=== PATIENT | male | born 1950 | race Caucasian/White ===

== ENCOUNTER 2023-03-13 09:00 | Outpatient (RCR) | payer MEDICARE, BC, SELFPAY ==
--- NOTE | 2022-10-28 18:04 | OT.OPOE ---
OT Outpatient Ortho Eval OT Outpatient Ortho Eval Start: 10/26/22 09:38 Freq: Status: Active Protocol: Document 10/26/22 18:57 LCN (Rec: 10/26/22 19:03 LCN Desktop) E-signed By Patito Snell, OTR/L, CLT OT OP Ortho Eval Details Type Type Eval Complexity Low Insurance Information Insurance Information Medicare B Outpatient History/Precautions Current Condition/Medical Diagnosis Referring Provider Israel Hoang Treatment Diagnosis Left Trigger Thumb Date of Onset 10/10/22 Medical Conditions HTN,Arthritis Other Conditions Hypercholesterolemia. 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 Allergic to doxycycline. Medical/Functional History Medical History Reviewed Yes Prior Level of Function/Mobility Pt lives alone in his lower level apt below sister, brother in law and nephew. 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 He did travel to [place] [facility] and was doing a lot of photography recently. He also had intermittent triggering of R middle finger while tying boots in hooked flexion. Pain Assessment Pain Present Pain Present Pain Reported Location L shoulder Description Pressure,Dull, Achy,Pinching, With Movement Intensity 3 L thumb Description Tightness,Pressure,Dull, Achy, Throbbing,Pinching,Pulling, With Movement Intensity 5 Goniometric Comments Goniometric Comments Goniometric Comments AROM-- WNL for all wrist, elbow planes. SH FL to 160 of 180 L. ER to 80 of 90. H ABD to 100 of 140. R UE WNL. Kepangi L 2/4 retropulsion and 9/10 opposition with 1-2/10 pn at MP. Scrub test has L CMC pain 2/10 , popping gritty, irregular tracking, but stable during MMT. Triggering, clicking at L thumb IP is constant, daily. MMT of all wrist planes 5/5, no pain. 4/5 with supination, pain at CMC 2/10. L SH MMT is 4+/5 SH FL/ABD no pain 4-/5 with SH ER. No pain . Humeral head displaced forward in GH fosaa by 2 cm on L side, R WNL. Chinese Teacher is 60# B. Connolly pinch is 22# R and 15# L (( 2/10 pn at CMC MP) 3 point pinch is 17# R and 13# L ( 4/10 pn at CMC) OT Objective Data Hand Hand Dominance Right Upper Extremity Special Tests Tenosynovitis Wrist Finklestein Test Negative Left Degenerative Arthritis Hand Trapeziometacarpal Joint Grind Test Positive Left Upper Extremity Special Tests Comments Comments no numbness or paresthesia OT Problems Problems Problems Decreased Strength,Decreased Range of Motion,Decreased Fine Motor,Lifting,Gripping, Pinching Other Problems Opening Containers,Computer Patient Potential Excellent Assessment Assessment Assessment Given Rambo's diagnosis of left trigger thumb and ? difficulty with edema, pain, ROM and strength loss of L hand, he would benefit from skilled OT to address these areas. Occupational Therapy Treatment Plan - OP Potential Rehabilitation Potential Excellent Set Goals Goals Set with Patient Yes Goals Goals In 8 weeks, pt will demonstrate:? 1) Decreased pn to <2/10 80% of the time with sustained gripping/pinching, carrying groceries, reading books and typing. 2) I HEP for stretching, gradual strengthening ( including L shoulder) and self mgmt strategies. 3) improved L pinch to 20# with L thumb pain < 1/10. 4)??Pt to be fit with functional bracing (for L thumb, day, night splints as needed) and use adaptive strategies to protect joint integrity to support less pain with ADL. Target Date 01/24/23 Progress set Treatment Plan Expected Frequency 1-2x Week Expected Duration 6-8 Weeks Certification Certification I Certify That: Therapy Services Provided, Therapy Plan Established, Therapy Plan Reviewed Recertification Information Recertification Information Initial Certification Date 10/26/22 Recertification Due Date 01/23/23 Provider Signature Shows Agreement With POC & Medical Necessity Physician Comment/Change Comment or Changes Physician NPI Number #
--- NOTE | 2023-01-03 11:57 | OT.OPODN2 ---
OT Outpatient Ortho Daily Note OT Outpatient Ortho Daily Note Start: 10/26/22 09:38 Freq: Status: Active Protocol: Document 01/03/23 11:25 LCN (Rec: 01/03/23 11:56 LCN [id number]) E-signed By Patito Snell, OTR/L, CLT Type of Note Type of Note Type of Note Daily Note,Note To MD,Recert/ Progress Note Visit Number 6 Insurance Information Insurance Information Medicare B Outpatient History/Precautions Current Condition/Medical Diagnosis Referring Provider Israel Hoang Treatment Diagnosis Left Trigger Thumb Date of Onset 10/10/22 Medical Conditions HTN,Arthritis Other Conditions Hypercholesterolemia. 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 Allergic to doxycycline. Medical/Functional History Medical History Reviewed Yes Prior Level of Function/Mobility Pt lives alone in his lower level apt below sister, brother in law and nephew. 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 Painful with rotating force with keys, cap and pulling pants up, squeezing small tubes of cream. Wears MP/IP stabilizer cone splint most hours of day, off at HS. Contrast baths don't feel like they do much anymore, hands loosen up well without it. Yellow putty seems to aggravate the pain. Rambo Ferreira is an active 72 yr old male who had fairly sudden onset of L thumb triggering, stiffness and pain 3 weeks ago, without known trauma for the past 3 weeks. He did travel to [facility] and was doing a lot of photography recently. Cont to have intermittent triggering of R middle finger while tying boots in hooked flexion. Pain Assessment Pain Present Pain Present Pain Reported Location L shoulder Description Pressure,Dull, Achy,Pinching, With Movement Intensity 3 L thumb Description Tightness,Pressure,Dull, Achy, Throbbing,Pinching,Pulling, With Movement Intensity 3 OT OP Daily Ortho Note/Assessment Therapeutic Exercise Therapeutic Exercise Minutes (minutes) 16 Therapeutic Exercise Comments Adjusted HEP-- d/c contrast baths (use for very stiff days only). Hold putty per pain. Added CMC webs space adductor stretch with roll out and tractioning x 3 reps-2 x/day. Reviewed jt blocking exercises, hold on IP extension glides until click decreases again, work on total TH EX at end ROM opposition arc and finger touching. Pt encouraged to avoid ful IP extension/large clicking after flexion, stay inside of painfree ROM. Ultrasound Ultrasound Location & Joint Position L thenar to IP, web spaces. Ultrasound Frequency & Mode 1 MHz Pulsed Intensity (w/cm2) 1.7 Ultrasound Duration 8 Minutes Ultrasound Comments as needed to support reduction of edema for tissue healing and improved tissue mobility Manual Therapy Manual Therapy Minutes (minutes) 16 Manual Therapy Comments OTR continues IASTM with Graston #6 to mobilize soft tissue surrounding joint capsule,?ligament structures and muscle groups to support freedom of movement and healing of structures of L thenar to IP, MP tendon length above/below pulleys, thenar eminence and web space. OTR completes pin and stretch at each blake of thumb MP/IP joints. Goniometric Comments Goniometric Comments Goniometric Comments 01/03/23-- Research Technologist is 55# R and 62# L ( twinge at MP, IP 1/10). 3 pt pinch is 22# R and 18# L (CMC twinge) 08/02. 3 pt is 22# R and 14# L ( 10 CMC twinge). From 10/26/22 eval: AROM-- WNL for all wrist, elbow planes. SH FL to 160 of 180 L. ER to 80 of 90. H ABD to 100 of 140. R UE WNL. Kepangi L 2/4 retropulsion and 9/10 opposition with 1-2/10 pn at MP. Scrub test has L CMC pain 2/10 , popping gritty, irregular tracking, but stable during MMT. Triggering, clicking at L thumb IP is constant, daily. MMT of all wrist planes 5/5, no pain. 4/5 with supination, pain at CMC 2/10. L SH MMT is 4+/5 SH FL/ABD no pain 4-/5 with SH ER. No pain . Humeral head displaced forward in GH fosaa by 2 cm on L side, R WNL. Research Technologist is 60# B. Connolly pinch is 22# R and 15# L (( 2/10 pn at CMC MP) 3 point pinch is 17# R and 13# L ( 4/10 pn at CMC) OT Objective Data Hand Hand Dominance Right Additional Information Objective Additional Information HEP-- 01/03/23-- hold putty and IP EX . Increase CMC MP TH EX at end ROM opposition and finger touch ex. D/C contrast baths. 11/09/22-- putty HEP for b2b sales manager, connolly 2 point alternating. 11/02/22-- circular massage, pin/stretch of L MP, IP Contrast baths with joint blocking ex for thumb mobility , CMC MP cone with wrist velcro brace. Upper Extremity Special Tests Tenosynovitis Wrist Finklestein Test Negative Left Degenerative Arthritis Hand Trapeziometacarpal Joint Grind Test Positive Left Upper Extremity Special Tests Comments Comments no numbness or paresthesia OT Problems Problems Problems Decreased Strength,Decreased Range of Motion,Decreased Fine Motor,Lifting,Gripping, Pinching Other Problems Opening Containers,Computer Patient Potential Excellent Assessment Assessment Assessment Pt' symptoms are much more mild, but still 5-6x/day. despite bracing, self IASTM, jt blocking and contrast baths . Agrees he would benefit from more OT for IASTM, US, and progression of HEP. Given Rambo's diagnosis of left trigger thumb and ? difficulty with edema, pain, ROM and strength loss of L hand, he would benefit from skilled OT to address these areas. Occupational Therapy Treatment Plan - OP Potential Rehabilitation Potential Excellent Set Goals Goals Set with Patient Yes Goals Goals PROGRESS-- After 6 visits of OT ( with 8 week delay since last visit, 11/09/22) In 8 weeks, pt will demonstrate:? 1) Decreased pn to <2/10 80% of the time with sustained gripping/pinching, carrying groceries, reading books and typing. (01/03/23 PROGRESS: Still having predictable pn with pinch + rotation, reisted pinch and pulling up pants, mild triggering at L IP extension) 2) I HEP for stretching, gradual strengthening ( including L shoulder) and self mgmt strategies. 3) improved L pinch to 20# with L thumb pain < 1/10. ( connolly pinch 18# RL and 14# 3 pt, 1/10 CMC pain) 4)??Pt to be fit with functional bracing (for L thumb, day, night splints as needed) and use adaptive strategies to protect joint integrity to support less pain with ADL. (Continues to wear MP/IP stabilizer thumb cone splint) Target Date 01/24/23 Progress set Treatment Plan Expected Frequency 1-2x Week Expected Duration 6-8 Weeks Comment Summary Pt returns after 8 weeks on vacation, OT plan of care still very appropriate. Added 8 more visits of OT to address sx further. OT Treatment Minutes Treatment Minutes Timed Treatment Minutes 40 Total Treatment Minutes 40 Occupational Therapy Billing Units Billing Units Manual Therapy 1 Therapeutic Exercise 1 Certification Certification I Certify That: Therapy Services Provided, Therapy Plan Established, Therapy Plan Reviewed Recertification Information Recertification Information Initial Certification Date 10/26/22 Recertification Start Date 01/03/23 Recertification Due Date 04/03/23 Reasons to Continue Skilled Therapy Pt returns after 8 weeks on vacation, OT plan of care still very appropriate. Pt' symptoms are much more mild, but still 5-6x/day. despite bracing, self IASTM, jt blocking and contrast baths. Agrees he would benefit from more OT for IASTM, US, and progression of HEP. Added 8 more visits of OT to address sx further. Rehabilitation Potential excellent Provider Signature Shows Agreement With POC & Medical Necessity Physician Comment/Change Comment or Changes Physician NPI Number #
--- NOTE | 2023-03-06 17:06 | OT.OPODN2 ---
OT Outpatient Ortho Daily Note OT Outpatient Ortho Daily Note Start: 10/26/22 09:38 Freq: Status: Active Protocol: Document 03/06/23 16:51 LCN (Rec: 03/06/23 17:05 JUAN [email or web address]) E-signed By Patito Snell, OTR/L, CLT Type of Note Type of Note Type of Note Daily Note,Note To MD Visit Number [id number] Insurance Information Insurance Information Medicare B Outpatient History/Precautions Current Condition/Medical Diagnosis Referring Provider Israel Hoang Treatment Diagnosis Left Trigger Thumb Date of Onset 10/10/22 Medical Conditions HTN,Arthritis Other Conditions Hypercholesterolemia. 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 Allergic to doxycycline. Medical/Functional History Medical History Reviewed Yes Prior Level of Function/Mobility Pt lives alone in his lower level apt below sister, brother in law and nephew. 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 No longer having pn at MP joint and is very pleased with those results. Triggering stays at bay when wearing oval 8 23 of 24 hours on L TH (but does wake with sitffness). ( Also wearing newer trigger finger splint on R RF x past 4 wks for 23 of 24 hours, gets pain / triggering with hook/pulling boot strings taut). Sees Dr Harvey Hoang on 03/08/23 to look further into options for managing B trigger finger symptoms further. From eval-- Gretchenaditya Ferreira is an active 72 yr old male who had fairly sudden onset of L thumb triggering, stiffness and pain 3 weeks ago, without known trauma for the past 3 weeks. He did travel to [facility] and was doing a lot of photography recently. Cont to have intermittent triggering of R middle finger while tying boots in hooked flexion. Pain Assessment Pain Present Pain Present Pain Reported Location R ring finger triggering Description Pressure,Shooting,With Movement Intensity 5 L shoulder Description Pressure,Dull, Achy,Pinching, With Movement Intensity 2 L thumb Description Tightness,Pressure,Dull, Achy, Throbbing,Pinching,Pulling, With Movement Intensity 1 OT OP Daily Ortho Note/Assessment Splinting Splinting Comments 02/07/23-- 2nd stronger rf trigger finger ring splint issued for R RF. 01/31/23-- trigger finger ring splint R RF. Ultrasound Ultrasound Location & Joint Position L thenar to IP, web spaces. Ultrasound Frequency & Mode 1 MHz Pulsed Intensity (w/cm2) 1.7 Ultrasound Duration 8 min Ultrasound Comments as needed to support reduction of edema for tissue healing and improved tissue mobility Manual Therapy Manual Therapy Minutes (minutes) 20 Manual Therapy Comments OTR continues IASTM with Graston #6 to mobilize soft tissue surrounding joint capsule,?ligament structures and muscle groups to support freedom of movement and healing of structures of L outcropping muscles of FLexor to out cropping mm, TH/1st DC , CMC joint capsule,thenar to IP, MP tendon length above/ below pulleys, thenar eminence and web space. OTR completes pin and stretch at each blake of thumb MP/IP joints. Gritty nodule and thickness still present below MP, less tender. Pt with questions on using manual hand technqiue vs IASTM on the base of MP; pt able to return demo of manual technique (as tool slips). Goniometric Comments Goniometric Comments Goniometric Comments 03/06/23-- Medical Front Desk Specialist is 68# R and 79# L ( no pn) Connolly pinch is 22# R and 19# L ( 1/10 tender at CMC base/ dorsal) 3 pt pinch is 19# R and 17# L (no pain). More clicking at blake A! on L thumb after deep resistance, non painful. 01/25/23-- Pn with over pressure at UD (DeQ), RD and WR EX OK ( STT) 01/21/23-- R relief map modeler 65#, 74# L ( with Ip click after, 2/10 tender) Connolly pinch 22# R and 16 # L 3 pt is 18# R and 16# L, no pain. Kinesiotape does not change strength much. 01/03/23-- Medical Front Desk Specialist is 55# R and 62# L ( twinge at MP, IP 08/02). 3 pt pinch is 22# R and 18# L (CMC twinge) 08/02. 3 pt is 22# R and 14# L ( 08/02 CMC twinge). From 10/26/22 eval: AROM-- WNL for all wrist, elbow planes. SH FL to 160 of 180 L. ER to 80 of 90. H ABD to 100 of 140. R UE WNL. Kepangi L 2/ retropulsion and / opposition with 1-2/10 pn at MP. Scrub test has L CMC pain 2/ , popping gritty, irregular tracking, but stable during MMT. Triggering, clicking at L thumb IP is constant, daily. MMT of all wrist planes 5/5, no pain. 4/5 with supination, pain at CMC 2/10. L SH MMT is 4+/5 SH FL/ABD no pain 4-/5 with SH ER. No pain . Humeral head displaced forward in GH fosaa by 2 cm on L side, R WNL. Medical Front Desk Specialist is 60# B. Connolly pinch is 22# R and 15# L (( 2/10 pn at CMC MP) 3 point pinch is 17# R and 13# L ( 4/10 pn at CMC) OT Objective Data Hand Hand Dominance Right Additional Information Objective Additional Information HEP-- 02/07/23-- yellow putty th add, radial abd, table top pinch 01/17/23-- yellow 5# band Rad, palmar Abduction, putty add and hypo/thenar press. 01/03/23-- hold putty and IP EX . Increase CMC MP TH EX at end ROM opposition and finger touch ex. D/C contrast baths. 11/09/22-- putty HEP for relief map modeler, connolly 2 point alternating. 11/02/22-- circular massage, pin/stretch of L MP, IP Contrast baths with joint blocking ex for thumb mobility , CMC MP cone with wrist velcro brace. Upper Extremity Special Tests Tenosynovitis Wrist Finklestein Test Negative Left Degenerative Arthritis Hand Trapeziometacarpal Joint Grind Test Positive Left Upper Extremity Special Tests Comments Comments no numbness or paresthesia OT Problems Problems Problems Decreased Strength,Decreased Range of Motion,Decreased Fine Motor,Lifting,Gripping, Pinching Other Problems Opening Containers,Computer Patient Potential Excellent Assessment Assessment Assessment MP pain much better in L thumb , still light to moderate catching in L IP. OTR having pt wearing L MP shashi splint on for the past 4 weeks for 80% of day/night, monitor for am joint stiffness . Pt returning to orthopedics this week. Given Rambo's diagnosis of left trigger thumb and ? difficulty with edema, pain, ROM and strength loss of L hand, he would benefit from skilled OT to address these area Occupational Therapy Treatment Plan - OP Potential Rehabilitation Potential Excellent Set Goals Goals Set with Patient Yes Goals Goals PROGRESS-- After 14 visits of OT ( with 8 week delay since last visit, 11/09/22) In 8 weeks, pt will demonstrate:? 1) Decreased pn to <2/10 80% of the time with sustained gripping/pinching, carrying groceries, reading books and typing. (03/06/23 PROGRESS: Still having predictable pn with pinch + rotation, resisted pinch and pulling up pants, mild triggering at L IP extension, hard to pickling tank operator pills/paper clips from table top) 2) I HEP for stretching, gradual strengthening ( including L shoulder) and self mgmt strategies. (PROGRESS 03/06/23-- Does well with consistent HEP, contrast baths and jt blocking exercises helpful to manage daily stiffness, working on thenar stability with 5# band and putty exercises). 3) improved L pinch to 20# with L thumb pain < 1/10. ( connolly pinch 18# RL and 14# 3 pt, 1/10 CMC pain) (Progress 03/06/23-- Medical Front Desk Specialist is 68 # R and 79# L ( no pn) Connolly pinch is 22# R and 19# L ( 1/10 tender at CMC base/ dorsal) 3 pt pinch is 19# R and 17# L (no pain). More clicking at blake A1 on L thumb after deep resistance, non painful. 4)??Pt to be fit with functional bracing (for L thumb, day, night splints as needed) and use adaptive strategies to protect joint integrity to support less pain with ADL. (Continues to wear oval 8 splint L thumb and trigger finger splint at R RF 80% of the time) Target Date 04/03/23 Progress set Treatment Plan Expected Frequency 1-2x Week Expected Duration 6-8 Weeks OT Treatment Minutes Treatment Minutes Timed Treatment Minutes 28 Total Treatment Minutes 28 Occupational Therapy Billing Units Billing Units Manual Therapy 1 Ultrasound 1 Certification Certification I Certify That: Therapy Services Provided, Therapy Plan Established, Therapy Plan Reviewed Recertification Information Recertification Information Initial Certification Date 10/26/22 Recertification Start Date 01/03/23 Recertification Due Date 04/03/23 Reasons to Continue Skilled Therapy Pt returns after 8 weeks on vacation, OT plan of care still very appropriate. Pt' symptoms are much more mild, but still 5-6x/day. despite bracing, self IASTM, jt blocking and contrast baths. Agrees he would benefit from more OT for IASTM, US, and progression of HEP. Added 8 more visits of OT to address sx further. Rehabilitation Potential excellent Provider Signature Shows Agreement With POC & Medical Necessity Physician Comment/Change Comment or Changes Physician NPI Number #
--- NOTE | 2023-03-13 16:10 | OT.OPODN2 ---
OT Outpatient Ortho Daily Note OT Outpatient Ortho Daily Note Start: 10/26/22 09:38 Freq: Status: Active Protocol: Document 03/13/23 15:59 LCN (Rec: 03/13/23 16:10 JUAN [id number]) E-signed By Patito Snell, OTR/L, CLT Type of Note Type of Note Type of Note Discharge Note,Note To MD Visit Number 15 Insurance Information Insurance Information Medicare B Outpatient History/Precautions Current Condition/Medical Diagnosis Referring Provider Israel Hoang Treatment Diagnosis Left Trigger Thumb Date of Onset 10/10/22 Medical Conditions HTN,Arthritis Other Conditions Hypercholesterolemia. 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 Allergic to doxycycline. Medical/Functional History Medical History Reviewed Yes Prior Level of Function/Mobility Pt lives alone in his lower level apt below sister, brother in law and nephew. 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 No longer having pn at MP joint and is very pleased with those results. Triggering stays at bay when wearing oval 8 23 of 24 hours on L TH (but does wake with sitffness). ( Also wearing newer trigger finger splint on R RF x past 4 wks for 23 of 24 hours, gets pain / triggering with hook/pulling boot strings taut). Sees Dr Harvey Hoang on 03/08/23 to look further into options for managing B trigger finger symptoms further. Pain Assessment Pain Present Pain Present Pain Reported Location R ring finger triggering Description Pressure,Shooting,With Movement Intensity 3 L shoulder Description Pressure,Dull, Achy,Pinching, With Movement Intensity 2 L thumb Description Tightness,Pressure,Dull, Achy, Throbbing,Pinching,Pulling, With Movement Intensity 1 OT OP Daily Ortho Note/Assessment Therapeutic Exercise Therapeutic Exercise Minutes (minutes) 5 Therapeutic Exercise Comments Reviewed home program and his daily contrast baths, joint blocking, anticipating how to manage/prevent stiffness and when to ask for return to therapy ( pain with resistance , unable to get relief with HEP). Splinting Splinting Comments 02/07/23-- 2nd stronger rf trigger finger ring splint issued for R RF. 01/31/23-- trigger finger ring splint R RF. Ultrasound Ultrasound Location & Joint Position L thenar to IP, web spaces. Ultrasound Frequency & Mode 1 MHz Pulsed Intensity (w/cm2) 1.7 Ultrasound Duration 8 min Ultrasound Comments as needed to support reduction of edema for tissue healing and improved tissue mobility Manual Therapy Manual Therapy Minutes (minutes) 10 Manual Therapy Comments OTR continues IASTM with Graston #6 to mobilize soft tissue surrounding joint capsule,?ligament structures and muscle groups to support freedom of movement and healing of structures of L outcropping muscles of FLexor to out cropping mm, TH/1st DC , CMC joint capsule,thenar to IP, MP tendon length above/ below pulleys, thenar eminence and web space. OTR completes pin and stretch at each blake of thumb MP/IP joints. Gritty nodule and thickness still present below MP, less tender. Pt with questions on using manual hand technqiue vs IASTM on the base of MP; pt able to return demo of manual technique (as tool slips). Goniometric Comments Goniometric Comments Goniometric Comments 03/06/23-- Master [place] is 68# R and 79# L ( no pn) Connolly pinch is 22# R and 19# L ( 1/10 tender at CMC base/ dorsal) 3 pt pinch is 19# R and 17# L (no pain). More clicking at blake A! on L thumb after deep resistance, non painful. 01/25/23-- Pn with over pressure at UD (DeQ), RD and WR EX OK ( STT) 01/21/23-- R change manager 65#, 74# L ( with Ip click after, 2/10 tender) Connolly pinch 22# R and 16 # L 3 pt is 18# R and 16# L, no pain. Kinesiotape does not change strength much. 01/03/23-- [place] is 55# R and 62# L ( twinge at MP, IP 10). 3 pt pinch is 22# R and 18# L (CMC twinge) 1/10. 3 pt is 22# R and 14# L ( 08/02 CMC twinge). From 10/26/22 eval: AROM-- WNL for all wrist, elbow planes. SH FL to 160 of 180 L. ER to 80 of 90. H ABD to 100 of 140. R UE WNL. [place] L 2/4 retropulsion and 9/10 opposition with 1-2/10 pn at MP. Scrub test has L CMC pain 2/10 , popping gritty, irregular tracking, but stable during MMT. Triggering, clicking at L thumb IP is constant, daily. MMT of all wrist planes 5/, no pain. 4/5 with supination, pain at CMC 2/10. L SH MMT is 4+/5 SH FL/ABD no pain 4-/5 with SH ER. No pain . Humeral head displaced forward in fosaa by 2 cm on L side, R WNL. [place] is 60# B. Connolly pinch is 22# R and 15# L (( 2/10 pn at CMC MP) 3 point pinch is 17# R and 13# L ( 4/10 pn at CMC) OT Objective Data Hand Hand Dominance Right Additional Information Objective Additional Information HEP-- 02/07/23-- yellow putty th add, radial abd, table top pinch 01/17/23-- yellow 5# band Rad, palmar Abduction, putty add and hypo/thenar press. 01/03/23-- hold putty and IP EX . Increase CMC MP TH EX at end ROM opposition and finger touch ex. D/C contrast baths. 11/09/22-- putty HEP for change manager, connolly 2 point alternating. 11/02/22-- circular massage, pin/stretch of L MP, IP Contrast baths with joint blocking ex for thumb mobility , CMC MP cone with wrist velcro brace. Upper Extremity Special Tests Tenosynovitis Wrist Finklestein Test Negative Left Degenerative Arthritis Hand Trapeziometacarpal Joint Grind Test Positive Left Upper Extremity Special Tests Comments Comments no numbness or paresthesia OT Problems Problems Problems Decreased Strength,Decreased Range of Motion,Decreased Fine Motor,Lifting,Gripping, Pinching Other Problems Opening Containers,Computer Patient Potential Excellent Assessment Assessment Assessment MP pain much better in L thumb , still light to moderate catching in L IP. OTR having pt wearing L MP shashi splint on for the past 4 weeks for 80% of day/night, monitor for am joint stiffness . Pt returning to orthopedics this week. Given Rambo's diagnosis of left trigger thumb and ? difficulty with edema, pain, ROM and strength loss of L hand, he would benefit from skilled OT to address these area Occupational Therapy Treatment Plan - OP Potential Rehabilitation Potential Excellent Set Goals Goals Set with Patient Yes Goals Goals PROGRESS-- After 15 visits of OT ( with 8 week delay since last visit, 11/09/22) In 8 weeks, pt will demonstrate:? 1) Decreased pn to <2/10 80% of the time with sustained gripping/pinching, carrying groceries, reading books and typing. 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 (PROGRESS 03/06/23-- Does well with consistent HEP, contrast baths and jt blocking exercises helpful to manage daily stiffness, working on thenar stability with 5# band and putty exercises). 3) improved L pinch to 20# with L thumb pain < 1/10. ( connolly pinch 18# RL and 14# 3 pt, 1/10 CMC pain) (Progress 03/06/23-- [place] is 68 # R and 79# L ( no pn) Connolly pinch is 22# R and 19# L ( 1/10 tender at CMC base/ dorsal) 3 pt pinch is 19# R and 17# L (no pain). More clicking at blake A1 on L thumb after deep resistance, non painful. 4)??Pt to be fit with functional bracing (for L thumb, day, night splints as needed) and use adaptive strategies to protect joint integrity to support less pain with ADL. (Continues to wear oval 8 splint L thumb and trigger finger splint at R RF 80% of the time) Target Date 04/03/23 Progress set Treatment Plan Expected Frequency 1-2x Week Expected Duration 6-8 Weeks OT Treatment Minutes Treatment Minutes Timed Treatment Minutes 23 Total Treatment Minutes 23 Occupational Therapy Billing Units Billing Units Manual Therapy 1 Ultrasound 1 Certification Certification I Certify That: Therapy Services Provided, Therapy Plan Established, Therapy Plan Reviewed Recertification Information Recertification Information Initial Certification Date 10/26/22 Recertification Start Date 01/03/23 Recertification Due Date 04/03/23 Reasons to Continue Skilled Therapy Pt returns after 8 weeks on vacation, OT plan of care still very appropriate. Pt' symptoms are much more mild, but still 5-6x/day. despite bracing, self IASTM, jt blocking and contrast baths. Agrees he would benefit from more OT for IASTM, US, and progression of HEP. Added 8 more visits of OT to address sx further. Rehabilitation Potential excellent Provider Signature Shows Agreement With POC & Medical Necessity Physician Comment/Change Comment or Changes Physician NPI Number # Discharge Note Discharge Note Discharge Summary Pt was seen for 15 visits of OT with progress towards goals above. Date of First Visit for Therapy 10/26/22 Date of Last Visit for Therapy 03/06/23 Initial Primary Functional Limitations/ Peder Hanna is an active 72 [place]cer[address] yr old male who had fairly sudden onset of L thumb triggering, stiffness and pain 3 weeks ago, without known trauma for the past 3 weeks. He did travel to [facility] and was doing a lot of photography recently. Cont to have intermittent triggering of R middle finger while tying boots in hooked flexion. Initial Pain Level 6 Pain Level at Discharge 1 Interventions Provided During Treatment Heat,Ice/Cold/Vasopneumatic, Joint Mobilization,Manual Therapy,Therapeutic Exercise, Self Care/Home Management Interventions Provided During Treatment joint mechanics, splinting, Comments joint protection strategies Recommendations/Reason for Discharge Progress Cont w/HEP
== END 2023-03-13 17:01 | disposition home or self-care (01) ==
PROVIDERS: PCP Family Medicine; Visit Provider Orthopaedic Surgery
DX: M65.312 Trigger thumb, left thumb (principal); Z51.89 Encounter for other specified aftercare
CPT/HCPCS: 97035; 97110; 97140; 97165; 97535; X5282

== ENCOUNTER 2023-05-29 09:11 | Outpatient (CLI) | payer MEDICARE, BC, SELFPAY ==
--- NOTE | 2023-05-29 10:11 | W.ANESCHARGE ---
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
== END 2023-05-29 09:12 | disposition home or self-care (01) ==
LOC: OP CLINIC 09:12
PROVIDERS: PCP Family Medicine; Visit Provider Internal Medicine Gastroenterology
DX: Z12.11 Encounter for screening for malignant neoplasm of colon (principal); K63.5 Polyp of colon; K57.30 Diverticulosis of large intestine without perforation or abscess without bleeding; Z86.010 Personal history of colon polyps
CPT/HCPCS: 45380; 811; 88305; 99100; J2704